=== PATIENT | male | born 2000 | race Caucasian/White ===

== ENCOUNTER 2019-10-13 11:04 | Emergency (ER) | payer SELFPAY ==
[2019-10-13] MEDS ORDERED: predniSONE 20 MG TAB ONE (11:59)
[2019-10-13] MEDS ORDERED: FAMOTIDINE 20 MG TAB ONE (12:00)
--- NOTE | 2019-10-13 12:15 | ER ---
Nurse's Notes [facility] Name: Thierry Webb Age: 18 yrs Sex: Male : 2000 Arrival Date: 10/13/2019 Time: 11:06 Bed 18 Private MD: Diagnosis: Allergic reaction to unknown source Presentation: 10/13 11:26 Presenting complaint: Patient states: yesterday morning, face was swollen, has been iw taking Benadryl and got better but woke up this morning and it was worse, pt c/o itchiness to face and arms. Transition of care: patient was not received from another setting of care. Onset: The symptoms/episode began/occurred yesterday. Anaphylaxis evaluation, no signs or symptoms of anaphylaxis were noted. Onset of symptoms was October 12, 2019. Risk Assessment: Do you want to hurt yourself or someone else? Patient reports no desire to harm self or others. Initial Sepsis Screen: Does the patient meet any 2 criteria? No. Patient's initial sepsis screen is negative. Does the patient have a suspected source of infection? No. Patient's initial sepsis screen is negative. Care prior to arrival: None. 11:26 Method Of Arrival: Ambulatory iw 11:26 Acuity: RAMIRO 4 iw Historical: - Allergies: 11:28 No Known Allergies; iw - Home Meds: 11:28 None [Active]; iw - PMHx: 11:28 None; iw - PSHx: 11:28 None; iw - Immunization history:: Adult Immunizations not up to date. - Coronavirus screen:: The patient has NOT traveled to [place], [place], or [place] in the past 14 days. Proceed with normal triage process as indicated. - Social history:: Smoking status: Patient reports the use of cigarette tobacco products, smokes one-half pack cigarettes per day. - Ebola Screening: : Patient negative for fever greater than or equal to 101.5 degrees Fahrenheit, and additional compatible Ebola Virus Disease symptoms Patient denies exposure to infectious person Patient denies travel to an Ebola-affected area in the 21 days before illness onset No symptoms or risks identified at this time. Screenin:33 Abuse screen: Denies threats or abuse. Nutritional screening: No deficits noted. rb1 Tuberculosis screening: No symptoms or risk factors identified. Fall Risk None identified. Assessment: 11:33 General: Appears in no apparent distress. comfortable, Behavior is calm, cooperative, rb1 Denies fever. Pain: Denies pain. Neuro: Level of Consciousness is awake, alert, obeys commands, Oriented to person, place, time, situation. Cardiovascular: Capillary refill < 3 seconds is brisk in bilateral fingers. Respiratory: Airway is patent Respiratory effort is even, unlabored, Respiratory pattern is regular, symmetrical, Denies shortness of breath. GI: No signs and/or symptoms were reported involving the gastrointestinal system. : No signs and/or symptoms were reported regarding the genitourinary system. Derm: Rash noted that is itchy, red, on face and arms. 12:22 Reassessment: Patient appears in no apparent distress at this time. No adverse reaction rb1 noted from the medication administration. 12:43 Reassessment: Patient appears in no apparent distress at this time. Patient and/or rb1 family updated on plan of care and expected duration. Pain level reassessed. Patient is alert, oriented x 3, equal unlabored respirations, skin warm/dry/pink. Vital Signs: 11:28 BP 117 / 82; Pulse 82; Resp 16; Temp 98.2; Pulse Ox 100% on R/A; Weight 90.72 kg; iw Height 5 ft. 3 in. (160.02 cm); 12:28 BP 110 / 61; Pulse 81; Resp 17; Pulse Ox 99% on R/A; rb1 11:28 Body Mass Index 35.43 (90.72 kg, 160.02 cm) iw ED Course: 11:06 Patient arrived in ED. ag5 11:27 Triage completed. iw 11:28 Arm band placed on. iw 11:33 Patient has correct armband on for positive identification. Bed in low position. Call rb1 light in reach. Side rails up X 1. Pulse ox on. NIBP on. 11:34 Darby Pagan FNP-C is PHCP. kb 11:34 Guzman Orosco MD is Attending Physician. kb 11:39 Lesvia Mi, CHRISTIANO is Primary Nurse. rb1 12:47 No provider procedures requiring assistance completed. Patient did not have IV access rb1 during this emergency room visit. Administered Medications: 12:00 Drug: Pepcid 20 mg Route: PO; rb1 12:20 Follow up: Response: No adverse reaction rb1 12:01 Drug: predniSONE 40 mg Route: PO; rb1 12:20 Follow up: Response: No adverse reaction rb1 Outcome: 12:15 Discharge ordered by . anisha 12:47 Discharged to home ambulatory, with friend. rb1 12:47 Condition: stable 12:47 Discharge instructions given to patient, Instructed on discharge instructions, follow up and referral plans. medication usage, Demonstrated understanding of instructions, follow-up care, medications, Prescriptions given X 2. 12:49 Patient left the ED. rb1 Signatures: Darby Pagan, VISUAL DEVELOPER-C VISUAL DEVELOPER-Apolonia Rodriguez, RN RN iw Lesvia Mi RN RN rb1 Vicky Grant ag5
--- NOTE | 2019-10-13 12:15 | EDPHYS ---
Physician Documentation [facility] Name: Thierry Webb Age: 18 yrs Sex: Male : 2000 Arrival Date: 10/13/2019 Time: 11:06 Bed 18 Private MD: ED Physician Guzman Orosco HPI: 10/13 12:25 This 18 yrs old Male presents to ER via Ambulatory with complaints of kb Allergic Reaction. 12:25 The patient presents with itching to arms and swelling to face. Onset: The kb symptoms/episode began/occurred yesterday. Associated signs and symptoms: Pertinent positives: swelling, itching. Possible causes: The patient has no known obvious cause for the symptoms. At home the patient or guardian has treated the symptoms with Benadryl. Severity of symptoms: At their worst the symptoms were mild moderate in the emergency department the symptoms have improved. The patient has not experienced similar symptoms in the past. The patient has not recently seen a physician. Pt reports he woke up yesterday with itching to arms and swelling to face. States he took benadryl for it and it helped throughout the day, but then woke up this morning with same swelling and itching. No new substances introduced that could have caused the reaction. No dental pain, cough, congestion, ear pain, fever. Historical: - Allergies: 11:28 No Known Allergies; iw - Home Meds: 11: None [Active]; iw - PMHx: 11: None; iw - PSHx: 11:28 None; iw - Immunization history:: Adult Immunizations not up to date. - Coronavirus screen:: The patient has NOT traveled to [place], [place], or [place] in the past 14 days. Proceed with normal triage process as indicated. - Social history:: Smoking status: Patient reports the use of cigarette tobacco products, smokes one-half pack cigarettes per day. - Ebola Screening: : Patient negative for fever greater than or equal to 101.5 degrees Fahrenheit, and additional compatible Ebola Virus Disease symptoms Patient denies exposure to infectious person Patient denies travel to an Ebola-affected area in the 21 days before illness onset No symptoms or risks identified at this time. ROS: 12:24 Constitutional: Negative for fever, chills, and weight loss, ENT: Negative for injury, kb pain, and discharge, Neck: Negative for injury, pain, and swelling, Cardiovascular: Negative for chest pain, palpitations, and edema, Respiratory: Negative for shortness of breath, cough, wheezing, and pleuritic chest pain, Abdomen/GI: Negative for abdominal pain, nausea, vomiting, diarrhea, and constipation, Back: Negative for injury and pain, MS/Extremity: Negative for injury and deformity, Neuro: Negative for headache, weakness, numbness, tingling, and seizure. 12:24 Skin: Positive for swelling to face and itching to arms . Exam: 12:25 Constitutional: This is a well developed, well nourished patient who is awake, alert, kb and in no acute distress. Head/Face: Normocephalic, atraumatic. ENT: Nares patent. No nasal discharge, no septal abnormalities noted. Tympanic membranes are normal and external auditory canals are clear. Oropharynx with no redness, swelling, or masses, exudates, or evidence of obstruction, uvula midline. Mucous membranes moist. Neck: Trachea midline, no thyromegaly or masses palpated, and no cervical lymphadenopathy. Supple, full range of motion without nuchal rigidity, or vertebral point tenderness. No Meningismus. Chest/axilla: Normal chest wall appearance and motion. Nontender with no deformity. No lesions are appreciated. Cardiovascular: Regular rate and rhythm with a normal S1 and S2. No gallops, murmurs, or rubs. Normal PMI, no JVD. No pulse deficits. Respiratory: Lungs have equal breath sounds bilaterally, clear to auscultation and percussion. No rales, rhonchi or wheezes noted. No increased work of breathing, no retractions or nasal flaring. Abdomen/GI: Soft, non-tender, with normal bowel sounds. No distension or tympany. No guarding or rebound. No evidence of tenderness throughout. Back: No spinal tenderness. No costovertebral tenderness. Full range of motion. Skin: Warm, dry with normal turgor. Normal color with no rashes, no lesions, and no evidence of cellulitis. MS/ Extremity: Pulses equal, no cyanosis. Neurovascular intact. Full, normal range of motion. Neuro: Awake and alert, GCS 15, oriented to person, place, time, and situation. Cranial nerves II-XII grossly intact. Motor strength 5/5 in all extremities. Sensory grossly intact. Cerebellar exam normal. Normal gait. Vital Signs: 11:28 BP 117 / 82; Pulse 82; Resp 16; Temp 98.2; Pulse Ox 100% on R/A; Weight 90.72 kg; iw Height 5 ft. 3 in. (160.02 cm); 12:28 BP 110 / 61; Pulse 81; Resp 17; Pulse Ox 99% on R/A; rb1 11:28 Body Mass Index 35.43 (90.72 kg, 160.02 cm) iw MDM: 11:35 Patient medically screened. kb 12:24 Data reviewed: vital signs, nurses notes. Data interpreted: Pulse oximetry: on room air kb is 100 %. Interpretation: normal. Counseling: I had a detailed discussion with the patient and/or guardian regarding: the historical points, exam findings, and any diagnostic results supporting the discharge/admit diagnosis, the need for outpatient follow up, an allergy/patient relations specialist, a family practitioner, to return to the emergency department if symptoms worsen or persist or if there are any questions or concerns that arise at home. Administered Medications: 12:00 Drug: Pepcid 20 mg Route: PO; rb1 12:20 Follow up: Response: No adverse reaction rb1 12:01 Drug: predniSONE 40 mg Route: PO; rb1 12:20 Follow up: Response: No adverse reaction rb1 Disposition: 14:15 Co-signature as Attending Physician, Guzman Orosco MD. rn Disposition: 08 12:15 Discharged to Home. Impression: Allergic reaction to unknown source. - Condition is Stable. - Discharge Instructions: Drug Allergy, [id number], Food Allergy, [id number]. - Prescriptions for Pepcid 20 mg Oral Tablet - take 1 tablet by ORAL route every 12 hours for 5 days; 10 tablet. Prednisone 20 mg Oral Tablet - take 1 tablet by ORAL route once daily for 5 days; 5 tablet. - Medication Reconciliation Form, Thank You Letter, Antibiotic Education, Prescription Opioid Use form. - Follow up: Emergency Department; When: As needed; Reason: Worsening of condition. Follow up: Private Physician; When: 2 - 3 days; Reason: Recheck today's complaints, Continuance of care, Re-evaluation by your physician. Signatures: Darby Pagan, SMITH-C SMITH-Apolonia Rodriguez RN RN iw Nieto, Roman, MD MD rn Barber, Rebecca RN RN rb1 Corrections: (The following items were deleted from the chart) 12:49 12:15 10/13/2019 12:15 Discharged to Home. Impression: Allergic reaction to unknown rb1 source. Condition is Stable. Forms are Medication Reconciliation Form, Thank You Letter, Antibiotic Education, Prescription Opioid Use. Follow up: Emergency Department; When: As needed; Reason: Worsening of condition. Follow up: Private Physician; When: 2 - 3 days; Reason: Recheck today's complaints, Continuance of care, Re-evaluation by your physician. kb
[2019-10-13 12:55] VITALS: TEMP 98.2
[2019-10-13 12:57] VITALS: BP 110/61; O2SAT 99
== END 2019-10-13 12:49 | disposition home or self-care (01) ==
LOC: ER 11:04
DX: L29.9 Pruritus, unspecified (principal); F17.210 Nicotine dependence, cigarettes, uncomplicated
CPT/HCPCS: 99283; J7512

== ENCOUNTER 2020-05-01 21:42 | Emergency (ER) | payer SELFPAY ==
--- NOTE | 2020-05-01 22:22 | ER ---
Nurse's Notes [facility] Name: Thierry Webb Age: 19 yrs Sex: Male : 2000 Arrival Date: 05/01/2020 Time: 21:44 Bed 20 Private MD: Diagnosis: Allergic contact dermatitis Presentation: 05/01 21:54 Chief complaint: Patient states: rash on top of right hand for 2 months, maybe started iw from gloves at work, was worried about the cracking now. Coronavirus screen: At this time, the client does not indicate any symptoms associated with coronavirus-19. Ebola Screen: Patient negative for fever greater than or equal to 101.5 degrees Fahrenheit, and additional compatible Ebola Virus Disease symptoms Patient denies exposure to infectious person. Patient denies travel to an Ebola-affected area in the 21 days before illness onset. No symptoms or risks identified at this time. Onset: The symptoms/episode began/occurred 2 month(s) ago. Anaphylaxis evaluation, no signs or symptoms of anaphylaxis were noted. Initial Sepsis Screen: Does the patient meet any 2 criteria? No. Patient's initial sepsis screen is negative. Does the patient have a suspected source of infection? No. Patient's initial sepsis screen is negative. Risk Assessment: Do you want to hurt yourself or someone else? Patient reports no desire to harm self or others. Onset of symptoms was February 2020. 21:54 Method Of Arrival: Ambulatory iw 21:54 Acuity: RAMIRO 4 iw Historical: - Allergies: 21:57 No Known Allergies; iw - Home Meds: 21:57 None [Active]; iw - PMHx: 21:57 None; iw - PSHx: 21:57 None; iw - Immunization history:: Adult Immunizations up to date. - Social history:: Smoking status: Patient reports the use of cigarette tobacco products, smokes one-half pack cigarettes per day. Screenin:04 Abuse screen: Denies threats or abuse. Denies injuries from another. Nutritional rr5 screening: No deficits noted. Tuberculosis screening: No symptoms or risk factors identified. Fall Risk None identified. Assessment: 22:00 General: Appears in no apparent distress. comfortable, Behavior is calm, cooperative, rr5 appropriate for age. 22:00 Pain: Complains of pain in right hand and left hand Pain currently is 2 out of 10 on a rr5 pain scale. Quality of pain is described as aching, Pain began gradually, Is intermittent. Neuro: Level of Consciousness is awake, alert, obeys commands, Oriented to person, place, time, situation. Cardiovascular: Capillary refill < 3 seconds Patient's skin is warm and dry. Respiratory: Airway is patent Respiratory effort is even, unlabored, Respiratory pattern is regular, symmetrical. GI: No signs and/or symptoms were reported involving the gastrointestinal system. : No signs and/or symptoms were reported regarding the genitourinary system. EENT: No signs and/or symptoms were reported regarding the EENT system. Derm: Rash noted that is red, raised, on right hand and left hand. Musculoskeletal: Capillary refill < 3 seconds. 22:50 Reassessment: Patient appears in no apparent distress at this time. Patient is alert, rr5 oriented x 3, equal unlabored respirations, skin warm/dry/pink. discharge instruction given and explained without complaints made. Vital Signs: 21:54 BP 118 / 75; Pulse 81; Resp 16 S; Temp 98.0; Pulse Ox 99% on R/A; Weight 99.79 kg; iw Height 5 ft. 3 in. (160.02 cm); Pain 2/10; 22:50 BP 115 / 70; Pulse 80; Resp 16; Pulse Ox 99% ; rr5 21:54 Body Mass Index 38.97 (99.79 kg, 160.02 cm) iw ED Course: 21:44 Patient arrived in ED. am2 21:51 Neptali Marinelli, CHRISTIANO is Primary Nurse. rr5 21:54 Richard Skinner MD is Attending Physician. kristine 21:57 Triage completed. iw 21:58 Arm band placed on. iw 22:04 Patient has correct armband on for positive identification. Bed in low position. Call rr5 light in reach. 22:22 Paul Rodriguez MD is Referral Physician. kristine 22:50 No provider procedures requiring assistance completed. Patient did not have IV access rr5 during this emergency room visit. Administered Medications: 22:45 Drug: Nystatin-Triamcinolone 1 application Route: Topical; Site: affected area; rr5 22:50 Follow up: Response: Medication administered at discharge. rr5 Outcome: 22:22 Discharge ordered by . kristine 22:50 Discharged to home ambulatory. rr5 22:50 Condition: stable 22:50 Discharge instructions given to patient, Instructed on discharge instructions, follow up and referral plans. medication usage, Demonstrated understanding of instructions, follow-up care, medications, Prescriptions given X 2. 22:54 Patient left the ED. rr5 Signatures: Richard kSinner MD MD cha Williams, Irene, RN Ines Mcnally Raymond RN RN rr5 Corrections: (The following items were deleted from the chart) 22: 22:00 Pain: Denies pain. rr5 rr5 22: 22:00 Derm: Rash noted that is red, raised, rr5 rr5
--- NOTE | 2020-05-01 22:22 | EDPHYS ---
Physician Documentation [facility] Name: Thierry Webb Age: 19 yrs Sex: Male : 2000 Arrival Date: 05/01/2020 Time: 21:44 Bed 20 Private MD: ED Physician Richard Skinner HPI: 05/01 22:18 This 19 yrs old Male presents to ER via Ambulatory with complaints of kristine Allergic Reaction. 22:18 The patient presents with localized swelling, rash, redness of skin. Onset: The kristine symptoms/episode began/occurred 1 week(s) ago. Associated signs and symptoms: The patient has no apparent associated signs or symptoms. Possible causes: At home the patient or guardian has treated the symptoms with nothing. Severity of symptoms: At their worst the symptoms were mild in the emergency department the symptoms are worse. The patient has experienced similar episodes in the past, a few times. Historical: - Allergies: 21:57 No Known Allergies; iw - Home Meds: 21:57 None [Active]; iw - PMHx: 21:57 None; iw - PSHx: 21:57 None; iw - Immunization history:: Adult Immunizations up to date. - Social history:: Smoking status: Patient reports the use of cigarette tobacco products, smokes one-half pack cigarettes per day. ROS: 22:19 Constitutional: Negative for fever, chills, and weight loss, Eyes: Negative for injury, kristine pain, redness, and discharge, ENT: Negative for injury, pain, and discharge, Neck: Negative for injury, pain, and swelling, Cardiovascular: Negative for chest pain, palpitations, and edema, Respiratory: Negative for shortness of breath, cough, wheezing, and pleuritic chest pain, Abdomen/GI: Negative for abdominal pain, nausea, vomiting, diarrhea, and constipation, Back: Negative for injury and pain, : Negative for injury, bleeding, discharge, and swelling, Skin: Negative for injury, rash, and discoloration, Neuro: Negative for headache, weakness, numbness, tingling, and seizure, Psych: Negative for depression, anxiety, suicide ideation, homicidal ideation, and hallucinations, Allergy/Immunology: Negative for hives, rash, and allergies, Endocrine: Negative for neck swelling, polydipsia, polyuria, polyphagia, and marked weight changes, Hematologic/Lymphatic: Negative for swollen nodes, abnormal bleeding, and unusual bruising. 22:19 MS/extremity: Positive for erythema, pain, swelling, of the right hand. Exam: 22:19 Constitutional: This is a well developed, well nourished patient who is awake, alert, kristine and in no acute distress. Head/Face: Normocephalic, atraumatic. Eyes: Pupils equal round and reactive to light, extra-ocular motions intact. Lids and lashes normal. Conjunctiva and sclera are non-icteric and not injected. Cornea within normal limits. Periorbital areas with no swelling, redness, or edema. ENT: Nares patent. No nasal discharge, no septal abnormalities noted. Tympanic membranes are normal and external auditory canals are clear. Oropharynx with no redness, swelling, or masses, exudates, or evidence of obstruction, uvula midline. Mucous membranes moist. Neck: Trachea midline, no thyromegaly or masses palpated, and no cervical lymphadenopathy. Supple, full range of motion without nuchal rigidity, or vertebral point tenderness. No Meningismus. Chest/axilla: Normal chest wall appearance and motion. Nontender with no deformity. No lesions are appreciated. Cardiovascular: Regular rate and rhythm with a normal S1 and S2. No gallops, murmurs, or rubs. Normal PMI, no JVD. No pulse deficits. Respiratory: Lungs have equal breath sounds bilaterally, clear to auscultation and percussion. No rales, rhonchi or wheezes noted. No increased work of breathing, no retractions or nasal flaring. Abdomen/GI: Soft, non-tender, with normal bowel sounds. No distension or tympany. No guarding or rebound. No evidence of tenderness throughout. Back: No spinal tenderness. No costovertebral tenderness. Full range of motion. Neuro: Awake and alert, GCS 15, oriented to person, place, time, and situation. Cranial nerves II-XII grossly intact. Motor strength 5/5 in all extremities. Sensory grossly intact. Cerebellar exam normal. Normal gait. Psych: Awake, alert, with orientation to person, place and time. Behavior, mood, and affect are within normal limits. 22:19 Skin: Appearance: Color: normal in color, Temperature: normal temperature, Moisture: normal moisture, petechiae, not noted, ecchymosis, not noted, abscess, not appreciated, cellulitis, is not appreciated, induration, that is mild is noted, contact dermatitis. Vital Signs: 21:54 BP 118 / 75; Pulse 81; Resp 16 S; Temp 98.0; Pulse Ox 99% on R/A; Weight 99.79 kg; iw Height 5 ft. 3 in. (160.02 cm); Pain 2/10; 22:50 BP 115 / 70; Pulse 80; Resp 16; Pulse Ox 99% ; rr5 21:54 Body Mass Index 38.97 (99.79 kg, 160.02 cm) iw MDM: 21:54 Patient medically screened. kristine 22:20 Data reviewed: vital signs, nurses notes. Data interpreted: ski molder: not kristine applicable for this patient encounter. Pulse oximetry: on room air is 99 %. Counseling: I had a detailed discussion with the patient and/or guardian regarding: the historical points, exam findings, and any diagnostic results supporting the discharge/admit diagnosis, the need for outpatient follow up, for definitive care, a family practitioner. ED course: EXPLAINED FINDINGS, DISCUSSED TREATMENT, WILL FOLLOW UP . Administered Medications: 22:45 Drug: Nystatin-Triamcinolone 1 application Route: Topical; Site: affected area; rr5 22:50 Follow up: Response: Medication administered at discharge. rr5 Disposition: 05/01/20 22:22 Discharged to Home. Impression: Allergic contact dermatitis. - Condition is Stable. - Discharge Instructions: Contact Dermatitis, Contact Dermatitis, [id number]. - Prescriptions for Zyrtec 10 mg Oral Tablet - take 1 tablet by ORAL route once daily As needed; 20 tablet. Nystatin- Triamcinolone 100,000-0.1 unit/g-% Topical Cream - apply 1 application by TOPICAL route 2 times per day; 30 gram. - Medication Reconciliation Form, Thank You Letter, Antibiotic Education, Prescription Opioid Use form. - Follow up: Private Physician; When: 2 - 3 days; Reason: Recheck today's complaints, Continuance of care, Re-evaluation by your physician. Follow up: Paul Rodriguez MD; When: 2 - 3 days; Reason: Recheck today's complaints, Re-evaluation by your physician. - Problem is new. - Symptoms have improved. Signatures: Richard Skinner MD MD cha Williams, Irene, RN RN iw Neptali Marinelli RN RN rr5 Corrections: (The following items were deleted from the chart) 22:54 22:22 05/01/2020 22:22 Discharged to Home. Impression: Allergic contact dermatitis. rr5 Condition is Stable. Forms are Medication Reconciliation Form, Thank You Letter, Antibiotic Education, Prescription Opioid Use. Follow up: Private Physician; When: 2 - 3 days; Reason: Recheck today's complaints, Continuance of care, Re-evaluation by your physician. Follow up: Paul Rodriguez; When: 2 - 3 days; Reason: Recheck today's complaints, Re-evaluation by your physician. Problem is new. Symptoms have improved. kristine
[2020-05-01] MEDS ORDERED: NYSTATIN 100MU/GM CREAM 15GM TOP ONE (22:44)
== END 2020-05-01 22:54 | disposition home or self-care (01) ==
LOC: ER 21:42
DX: L23.9 Allergic contact dermatitis, unspecified cause (principal); F17.210 Nicotine dependence, cigarettes, uncomplicated
CPT/HCPCS: 99283